=== PATIENT | male | born 1995 | race Caucasian/White ===

== ENCOUNTER 2019-06-11 23:16 | Emergency (ER) | payer OTHER, SELFPAY ==
[2019-06-11 23:18] VITALS: BP 115/80; PULSE 90; RESP 24; TEMP 36.1; O2SAT 95; BMI 26.2
[2019-06-11 23:35] VITALS: PULSE 97; RESP 18; O2SAT 98
[2019-06-11] MEDS: Albuterol 2.5 MG/3 ML VIAL.NEB. INHALATION (23:35)
--- NOTE | 2019-06-12 00:21 | ED.VISSUMM ---
- ER Visit Summary Date of Service: 06/12/19 Chief Complaint: Asthma History of Present Illness: The patient is a 23 M who presents with asthma. He complains of 1 day of increased shortness of breath and wheezing. He was using his inhaler without relief. He has a nebulizer and also took 2 treatments at home. He is a current every day smoker. No fevers congestion rhinorrhea. No vomiting. Physical Examination: Afebrile vitals are normal Moist mucous membranes Heart regular rate and rhythm Expiratory wheezing but good air exchange no distress able speak in full sentences Alert Test Results: Not indicated Emergency Department Course and Treatment: Patient was given albuterol and Atrovent aerosols. He will be placed on prednisone. We also discussed smoking cessation. He requested a prescription for nicotine patches which was provided. He understands to return for new or worsening symptoms and was discharged. Treatment Plan: [] Disposition: Discharge Impression: Asthma Smoking cessation counseling This note was generated with [employer] dictation software. It may contain incorrect words, spelling, and punctuation that were not noted in review of the chart prior to signing ED Disposition - Plan for ED Patient: Referrals: NOT,DEFINED [Primary Care Provider] -
--- NOTE | 2019-06-12 00:24 | ED.DEP ---
ED Disposition - Plan for ED Patient: Instructions: ASTHMA, Acute (Adult) Prescriptions: Nicotine [Nicotine Patch] 1 ea TD DAILY #14 patch.[id number] Prescription Printed predniSONE tablet 60 mg PO DAILY #15 tab Prescription Printed Albuterol Inhaler [Ventolin Hfa] 1 - 2 puff INHALATION Q4H PRN PRN #1 inhaler PRN Reason: Wheezing Prescription Printed Referrals: NOT,DEFINED [Primary Care Provider] -
[2019-06-12 00:30] VITALS: PULSE 94; RESP 18
[2019-06-12] MEDS: Ipratropium/Albuterol Sulfate 3 ML AMPUL.NEB INHALATION (00:30)
[2019-06-12 00:48] VITALS: RESP 16
== END 2019-06-12 00:53 | disposition home or self-care (01) ==
LOC: ED 06-12 00:37
PROVIDERS: Emergency Provider Emergency Medicine
DX: J45.909 Unspecified asthma, uncomplicated (principal); F17.200 Nicotine dependence, unspecified, uncomplicated
CPT/HCPCS: 94640; 99282